=== PATIENT | male | born 1985 | race Two or more races ===

== ENCOUNTER 2019-04-12 14:57 | Inpatient (IN) | payer SELFPAY ==
[~2019-04-12] VITALS: Ht 175.3 cm; Wt 60.2 kg
[2019-04-12] MEDS ORDERED: SODIUM CHLORIDE 0.9% 1,000 ML IVB ONE (15:36)
[2019-04-12] MEDS ORDERED: FAMOTIDINE (10MG/ML) 2ML VL IV ONE (15:45)
[2019-04-12] MEDS ORDERED: MORPHINE SULFATE 4 MG/ML SYR/VIAL IV ONE (15:45)
[2019-04-12 16:07] LABS: Albumin 4.4 g/dL (3.4-5.0); BUN/Creatinine Ratio 20.6; Calcium 8.7 mg/dL (8.5-10.1); Potassium 5.5 mmol/L (3.5-5.1)
[2019-04-12 16:10] LABS: Bilirubin, Total 0.5 mg/dL (0.2-1.0); Total Protein 8.4 g/dL (6.4-8.2)
[2019-04-12 16:12] LABS: Magnesium 2.4 mg/dL (1.6-2.6)
[2019-04-12 17:14] LABS: Lymphocytes % (auto) 8.8 % (10.0-50.0); White Blood Cell 11.8 10^3/uL (4.4-10.8)
[2019-04-12 17:15] LABS: Basophils # (auto) 0 uL; Basophils % (auto) 0.3 % (0.0-2.0); Eosinophils # (auto) 0 uL; Eosinophils % (auto) 0.3 % (0.0-7.0); Hemoglobin 18.7 g/dL (13.5-17.5); Monocytes # (auto) 0.2 uL; Monocytes % (auto) 1.6 % (0.0-12.0); Neutrophils # (auto) 10.5 uL; Nucleated Red Blood Cells % 0.1 %; Red Blood Cells 5.91 10^6/uL (4.5-5.90)
[2019-04-12 17:16] LABS: Hematocrit 55.9 % (41.0-53.0); Mean Corpuscular Hemoglobin 31.6 pg (28.0-32.0); Mean Corpuscular Hgb Conc. 33.4 g/dL (32.0-36.0); Mean Corpuscular Volume 94.6 fL (80.0-100.0); Platelet Count (auto) 307 10^3/uL (140-450); Red Cell Distribution Width 13.5 % (11.8-14.3)
[2019-04-12] MEDS ORDERED: ONDANSETRON HCL 4 MG/2 ML VIAL IV ONE (20:30)
[2019-04-12] MEDS ORDERED: HYDROmorphone HCL 2 MG/ML VL IV ONE (20:30)
[2019-04-12] MEDS ORDERED: TEMAZEPAM 15 MG CAP PO PRN (20:45)
[2019-04-12] MEDS: SODIUM CHLORIDE 0.9% 1,000 ML IV SCH (20:45)
[2019-04-12] MEDS ORDERED: SODIUM CHLORIDE 0.9% 500 ML IV ONE (20:45)
[2019-04-12] MEDS ORDERED: metroNIDAZOLE 500MG/100ML 100 ML IV ONE (20:45)
[2019-04-12] MEDS ORDERED: MORPHINE SULFATE 4 MG/ML SYR/VIAL IV PRN (20:45)
[2019-04-12] MEDS ORDERED: ACETAMINOPHEN 325 MG TAB PO PRN (20:45)
[2019-04-12] MEDS: FAMOTIDINE 20 MG TAB PO SCH (21:38)
--- NOTE | 2019-04-12 22:24 | NUR ---
MS admit from [facility] admitted to tele/MS after SBAR received. Patient oriented to Juhi pettit RN, unit, room, bed, and unit policies regarding patient care and visiting hours. Patient weighed by bed scale and encouraged to call if they need something. All questions and concerns addressed, patient verbalized understanding. Note: Came per wheelchair awake alert oriented x 4, not in respiratory distress, vital signs checked.
[2019-04-12 22:30] VITALS: BP 113/75
--- NOTE | 2019-04-12 22:30 | NUR ---
As per hospitalist notes patient is homeless, but when asked in the floor he lives with his parents, social service consult ordered..
[2019-04-13 02:30] LABS: Urine Bacteria NONE SEEN /hpf (None Seen); Urine Blood Negative /uL (Negative); Urine Specific Gravity 1.018 (1.001-1.035); Urine WBC 1 /hpf (0 - 3)
[2019-04-13 02:58] LABS: Alcohol, Urine < 3.0 mg/dL (0-5); Amphetamine Screen, Urine POSITIVE (NEGATIVE); Barbiturate Scree,Urine NEGATIVE (NEGATIVE); Benzodiazephine Screen, Urine NEGATIVE (NEGATIVE); Cannabinoid Screen, Urine NEGATIVE (NEGATIVE); Cocaine Screen, Urine NEGATIVE (NEGATIVE); Phencyclidine Screen, Urine NEGATIVE (NEGATIVE)
[2019-04-13 03:06] LABS: Opiate Scree,Urine NEGATIVE (NEGATIVE)
[2019-04-13] MEDS: HYDROcodone-ACET 5/325MG TAB PO PRN (05:21)
[2019-04-13] MEDS: metroNIDAZOLE 500MG/100ML 100 ML IV SCH ×3 (05:22→17:15)
[2019-04-13 06:12] LABS: Basophils # (auto) 0 uL; Basophils % (auto) 0.3 % (0.0-2.0); Eosinophils # (auto) 0.2 uL; Eosinophils % (auto) 2.5 % (0.0-7.0); Hematocrit 42.8 % (41.0-53.0); Hemoglobin 14.8 g/dL (13.5-17.5); Lymphocytes # (auto) 0.8 uL; Lymphocytes % (auto) 10.1 % (10.0-50.0); Mean Corpuscular Hgb Conc. 34.7 g/dL (32.0-36.0); Mean Corpuscular Volume 92.1 fL (80.0-100.0); Monocytes # (auto) 0.6 uL; Monocytes % (auto) 7.8 % (0.0-12.0); Neutrophils # (auto) 6.1 uL; Neutrophils % (auto) 79.3 % (37.0-80.0); Nucleated Red Blood Cells % 0.1 %; Platelet Count (auto) 241 10^3/uL (140-450); Red Blood Cells 4.64 10^6/uL (4.5-5.90); Red Cell Distribution Width 12.9 % (11.8-14.3); White Blood Cell 7.7 10^3/uL (4.4-10.8)
[2019-04-13 06:37] LABS: Potassium 3.8 mmol/L (3.5-5.1)
[2019-04-13 06:43] LABS: BUN/Creatinine Ratio 21.8; Calcium 7.7 mg/dL (8.5-10.1)
--- NOTE | 2019-04-13 07:25 | NUR ---
Report given to Isela De León, patient is asleep, no distress.
--- NOTE | 2019-04-13 08:00 | NUR ---
Patient stated he wants to smoke. Explained to patient the Against Medical Advice to smoke off unit/downstairs. No beyond 30 minutes off unit, if he leaves the hospital premises with the IV line intact on his arm, the [facility] [employer] [facility] will be called. Patient verbalized understanding. Patient read the AMA form, signed the form. AMA form placed in the patient's chart.
[2019-04-13] MEDS: SODIUM CHLORIDE 0.9% 1,000 ML IV SCH ×2 (08:24→18:02)
[2019-04-13 09:00] VITALS: BP 104/64
[2019-04-13] MEDS: FAMOTIDINE 20 MG TAB PO SCH ×2 (10:00→21:30)
--- NOTE | 2019-04-13 10:20 | NUR ---
Patient taken via wheelchair to Radiology. Patient refused to wear a hospital gown, wearing pants only, blanket given.
[2019-04-13] MEDS ORDERED: GASTROGRAFIN 120 ML SOL ONE (10:36)
--- NOTE | 2019-04-13 11:50 | NUR ---
Patient back to room.
--- NOTE | 2019-04-13 12:07 | NUR ---
Stool specimen sent to Laboratory.
[2019-04-13 13:00] VITALS: BP 125/82
--- NOTE | 2019-04-13 13:20 | NUR ---
Parents at bedside.
--- NOTE | 2019-04-13 13:50 | NUR ---
Suze Plunkett came over. ordered test the stools for C-difficile, to put in order for Clear Liquid Diet.
--- NOTE | 2019-04-13 13:55 | NUR ---
Patient off unit. With signed AMA to smoke off unit. Mother with patient.
--- NOTE | 2019-04-13 14:00 | NUR ---
C-difficile form brought to Laboratory. Tech said they have the stool specimen.
[2019-04-13 17:00] VITALS: BP 137/84
--- NOTE | 2019-04-13 19:59 | NUR ---
Opening Shift Note Assumed care of patient, awake and alert. No S/S of distress/SOB or pain. Instructed on POC and to call for assist PRN, will continue to monitor for changes Q1hr and PRN.Given juice and jello as per request.
[2019-04-13 22:09] VITALS: BP 118/71
[2019-04-14 05:33] VITALS: BP 128/83
[2019-04-14] MEDS: metroNIDAZOLE 500MG/100ML 100 ML IV SCH ×3 (05:55→21:33)
[2019-04-14] MEDS: SODIUM CHLORIDE 0.9% 1,000 ML IV SCH ×2 (06:06→18:50)
--- NOTE | 2019-04-14 07:32 | NUR ---
Report given to Isela De León, patient is resting no distress.
[2019-04-14 09:00] VITALS: BP 112/75
--- NOTE | 2019-04-14 09:48 | NUR ---
Patient went back to bed from the bathroom.
[2019-04-14] MEDS: FAMOTIDINE 20 MG TAB PO SCH ×2 (09:50→21:33)
--- NOTE | 2019-04-14 10:30 | NUR ---
Suze Plunkett came over fro follow up GI Consult. to advance the diet to Full Liquid.
[2019-04-14] MEDS: ONDANSETRON HCL 4 MG/2 ML VIAL IV PRN (10:36)
--- NOTE | 2019-04-14 10:36 | NUR ---
Patient stated he got nauseous while smoking downstairs so he went back to his room right away. Zofran Inj given for nausea as ordered.
[2019-04-14 13:00] VITALS: BP 116/73
[2019-04-14 17:00] VITALS: BP 126/74
[2019-04-14] MEDS: HYDROcodone-ACET 5/325MG TAB PO PRN (18:48)
--- NOTE | 2019-04-14 18:48 | NUR ---
Patient stated his abdominal pain at 6/10 at this time. [place] 5/325 PO given for pain as ordered.
[2019-04-14 20:00] VITALS: BP 130/82
--- NOTE | 2019-04-14 20:05 | NUR ---
Opening Shift Note Assumed care of patient, awake and alert, talking to gf on the phone. No S/S of distress/SOB on room air, c/o abdominal pain, recently medicated. Instructed on POC and to call for assistance PRN, will continue to monitor for changes Q1hr and PRN. Call light within reach
[2019-04-14 21:28] VITALS: BP 130/82
--- NOTE | 2019-04-14 22:05 | NUR ---
Info Spoke to girlfriend, password verified, update provided, informed on poc and pending tests. Girlfriend asked if HIV or std tests were part of routine screening, informed we do not run those tests unless requested by patient or ordered by MD. All questions answered. GF to call tomorrow at 5pm for update.
--- NOTE | 2019-04-15 00:45 | NUR ---
Rounds Patient sleeping respirations even and unlabored. No S/S of distress/SOB or pain. Will continue to monitor changes q1hr and PRN.
[2019-04-15 04:45] VITALS: BP 112/75
[2019-04-15] MEDS: metroNIDAZOLE 500MG/100ML 100 ML IV SCH ×2 (06:12→14:00)
[2019-04-15] MEDS: SODIUM CHLORIDE 0.9% 1,000 ML IV SCH ×2 (06:13→10:03)
--- NOTE | 2019-04-15 08:10 | NUR ---
Patient back to room from smoking off unit. Patient stated he's nauseous.
[2019-04-15] MEDS: ONDANSETRON HCL 4 MG/2 ML VIAL IV PRN (08:18)
--- NOTE | 2019-04-15 08:18 | NUR ---
Zofran Inj given for nausea.
[2019-04-15 09:00] VITALS: BP 121/79
[2019-04-15] MEDS: FAMOTIDINE 20 MG TAB PO SCH (09:56)
--- NOTE | 2019-04-15 10:08 | NUR ---
Suze Plunkett came over. said patient okay to go home as per GI perspective.
[2019-04-15 13:00] VITALS: BP 109/72
--- NOTE | 2019-04-15 16:10 | NUR ---
Sixto Tovar brought a white long sleeve shirt for the patient. Patient has no shirt from home.
[2019-04-15 16:32] VITALS: BP 109/72
--- NOTE | 2019-04-15 16:50 | NUR ---
Discharge instructions given as ordered. Encourage to follow up with PMD as instructed. Patient has no insurance, information on [facility] given. All questions and concerns addressed. Patient verbalized understanding. Medication reconciliation form completed and copy given to patient. IV removed with catheter intact, pressure dressing applied. Patient is ambulatory, refused to be taken to vehicle via wheelchair, patient with all personal belongings, accompanied by male family member. No distress noted at time of departure.
[2019-04-15 17:00] VITALS: BP 143/79
== END 2019-04-15 16:50 | disposition home or self-care (01) | DRG 388 ==
LOC: EDBD 14:57 → ER 14:57 → OVERFLOW 14:58 → WEST WING 22:24
PROVIDERS: ADMIT Nurse Practitioner; ATTEND Internal Medicine Pulmonary Disease
DX: K56.7 Ileus, unspecified (principal); K85.90 Acute pancreatitis without necrosis or infection, unspecified; R65.10 Systemic inflammatory response syndrome (SIRS) of non-infectious origin without acute organ dysfunction; Z59.0 Homelessness; K52.9 Noninfective gastroenteritis and colitis, unspecified; F15.90 Other stimulant use, unspecified, uncomplicated; E87.5 Hyperkalemia; D72.829 Elevated white blood cell count, unspecified
CPT/HCPCS: 36415; 74176; 74250; 80048; 80053; 80307; 81001; 83690; 83735; 84132; 85025; 85048; 87045; 87427; 87493; G0378; J2405; J3490

== ENCOUNTER 2019-04-29 14:44 | Emergency (ER) | payer SELFPAY ==
[~2019-04-29] VITALS: Ht 175.3 cm; Wt 72.6 kg
[2019-04-29 14:50] VITALS: BP 128/74
== END 2019-04-29 17:30 | disposition left against medical advice (07) ==
LOC: EDBD 14:44 → ER 14:44
DX: R11.2 Nausea with vomiting, unspecified (principal); Z53.21 Procedure and treatment not carried out due to patient leaving prior to being seen by health care provider

== ENCOUNTER 2019-10-23 15:14 | Inpatient (IN) | payer MEDICAID, OTHER ==
[~2019-10-23] VITALS: Ht 177.8 cm; Wt 63.5 kg
[2019-10-23] MEDS ORDERED: SODIUM CHLORIDE 0.9% 1,000 ML IV ONE ×2 (15:24)
[2019-10-23] MEDS ORDERED: MORPHINE SULFATE 4 MG/ML SYR/VIAL IV ONE (15:30)
[2019-10-23] MEDS ORDERED: ONDANSETRON HCL 4 MG/2 ML VIAL IV ONE (15:30)
[2019-10-23 15:32] LABS: Red Cell Distribution Width 13.4 % (11.8-14.3)
[2019-10-23 15:34] LABS: Hematocrit 55.1 % (41.0-53.0); Mean Corpuscular Hemoglobin 31.6 pg (28.0-32.0); Mean Corpuscular Hgb Conc. 34.5 g/dL (32.0-36.0); Mean Corpuscular Volume 91.8 fL (80.0-100.0); Platelet Count (auto) 306 10^3/uL (140-450)
[2019-10-23 15:45] LABS: Basophils % (manual) 0 (0.0-2.0); Blast Cells 0; Metamyelocytes % 0; Myelocytes % 0; Promyelocytes % 0; Reactive Lymphocytes 0
[2019-10-23 15:51] LABS: Albumin 5.2 g/dL (3.4-5.0); Anion Gap 6 (5-15); Blood Urea Nitrogen 25 mg/dL (7-18); Calcium 9.8 mg/dL (8.5-10.1); Carbon Dioxide 28 mmol/L (21-32); Chloride 99 mmol/L (98-107); Glucose 144 mg/dL (74-106); Potassium 4.1 mmol/L (3.5-5.1); Sodium 133 mmol/L (136-145)
[2019-10-23 15:57] LABS: Alanine Aminotransferase 23 U/L (16-61); Alkaline Phosphatase 76 U/L (45-117); Aspartate Aminotransferase 14 U/L (15-37); BUN/Creatinine Ratio 19.2; Bilirubin, Total 0.6 mg/dL (0.2-1.0); GFR African American 81 mL/min; GFR Non-African American 67 mL/min; Total Protein 9.4 g/dL (6.4-8.2)
[2019-10-23] MEDS ORDERED: metroNIDAZOLE 500MG/100ML 100 ML IV ONE (16:00)
[2019-10-23] MEDS ORDERED: cefTRIAXone 1GM/50ML D5W 50 ML IV ONE (16:00)
[2019-10-23] MEDS ORDERED: DIPHENOXYLATE W/ATROPINE 2.5 MG TAB PO ONE (16:15)
[2019-10-23 16:40] LABS: Band Neutrophils % (manual) 20; Eosinophils % (manual) 1 (0-7); Lymphocytes % (manual) 6 (10.0-50.0); Monocytes % (manual) 3 (0-12)
[2019-10-23 17:07] LABS: INR 1.03 (0.9-1.15); Partial Thromboplastin Time 26.2 sec (23.64-32.05)
[2019-10-23 17:21] LABS: Urine WBC None Seen /hpf (0 - 3)
[2019-10-23 17:43] LABS: Urine Bacteria NONE SEEN /hpf (None Seen); Urine Blood Negative /uL (Negative); Urine Hyaline Cast MANY /lpf (0 - 2); Urine Mucus FEW (None Seen); Urine Specific Gravity 1.011 (1.001-1.035)
[2019-10-23 17:49] LABS: Alcohol, Urine < 3.0 mg/dL (0-5); Amphetamine Screen, Urine NEGATIVE (NEGATIVE); Barbiturate Scree,Urine NEGATIVE (NEGATIVE); Benzodiazephine Screen, Urine NEGATIVE (NEGATIVE); Cannabinoid Screen, Urine NEGATIVE (NEGATIVE); Cocaine Screen, Urine NEGATIVE (NEGATIVE); Opiate Scree,Urine POSITIVE (NEGATIVE); Phencyclidine Screen, Urine NEGATIVE (NEGATIVE)
[2019-10-23] MEDS ORDERED: MORPHINE SULF INJ 2 MG/ML SYRINGE 1ML IV PRN (18:30)
[2019-10-23] MEDS ORDERED: ACETAMINOPHEN 500 MG TAB PO PRN (18:30)
[2019-10-23] MEDS: SODIUM CHLORIDE 0.9% 1,000 ML IV SCH (19:09)
[2019-10-23] MEDS ORDERED: PNEUMOCOCCAL VACC POLYS 25 MCG/0.5 ML VIAL IM ONE (21:00)
[2019-10-23 22:00] VITALS: BP 108/67
[2019-10-23] MEDS: metroNIDAZOLE 500MG/100ML 100 ML IV SCH (22:35)
--- NOTE | 2019-10-23 23:37 | NUR ---
PATIENT IS A NEW ADMIT FROM ER AT 2030. PRESENTING COMPLAINTS IN ER WERE NAUSEA, VOMITING AND ABDOMINAL PAIN. PATIENT DENIED ALL THREE SYMPTOMS ON ADMISSION. NEW PERIPHERAL IV LINE INSERTED AT 2100 ON THE RIGHT FOREARM. FORMER ONE ON RIGHT ANTECUBITAL WAS DISCONTINUED FOR BLOCKAGE. PATIENT HAS REMAINED CALM AND PAIN FREE.
[2019-10-24] MEDS: SODIUM CHLORIDE 0.9% 1,000 ML IV SCH ×3 (02:38→16:52)
[2019-10-24 05:00] VITALS: BP 106/53
[2019-10-24] MEDS: metroNIDAZOLE 500MG/100ML 100 ML IV SCH ×3 (05:47→22:23)
[2019-10-24 06:12] LABS: Basophils # (auto) 0 10 ^3/uL (0-0.2); Basophils % (auto) 0.5 % (0.0-2.0); Eosinophils # (auto) 0.1 10 ^3/uL (0-0.8); Eosinophils % (auto) 2.6 % (0.0-7.0); Hematocrit 40.8 % (41.0-53.0); Lymphocytes # (auto) 1.8 10 ^3/uL (0.4-5.4); Lymphocytes % (auto) 34.2 % (10.0-50.0); Mean Corpuscular Hemoglobin 31.4 pg (28.0-32.0); Mean Corpuscular Hgb Conc. 34.4 g/dL (32.0-36.0); Mean Corpuscular Volume 91.1 fL (80.0-100.0); Monocytes # (auto) 0.4 10 ^3/uL (0-1.3); Monocytes % (auto) 6.8 % (0.0-12.0); Neutrophils % (auto) 55.9 % (37.0-80.0); Nucleated Red Blood Cells % 0.1 %; Platelet Count (auto) 238 10^3/uL (140-450); Red Blood Cells 4.47 10^6/uL (4.5-5.90); Red Cell Distribution Width 13.5 % (11.8-14.3); White Blood Cell 5.4 10^3/uL (4.4-10.8)
[2019-10-24 06:31] LABS: Potassium 3.9 mmol/L (3.5-5.1)
[2019-10-24 06:39] LABS: Albumin 3.2 g/dL (3.4-5.0); BUN/Creatinine Ratio 15.9; Bilirubin, Total 0.9 mg/dL (0.2-1.0); Calcium 7.6 mg/dL (8.5-10.1)
--- NOTE | 2019-10-24 07:30 | NUR ---
Opening Shift Note RECEIVED REPORT FROM NOC RN. Assumed care of patient, awake and alert. No S/S of distress/SOB or pain. BED IN LOWEST, LOCKED POSITION WITH SIDERAILS UP x2 AND CALL LIGHT WITHIN REACH. Instructed on POC and to call for assist PRN, will continue to monitor for changes Q1hr and PRN.
[2019-10-24 08:43] VITALS: BP 102/62
[2019-10-24] MEDS: cefTRIAXone 1GM/50ML D5W 50 ML IV SCH (09:18)
[2019-10-24] MEDS: PANTOPRAZOLE 40 MG/10 ML VIAL INJ IV SCH (09:47)
--- NOTE | 2019-10-24 10:25 | NUR ---
Pt was initial listed as having no current insurance. Pt states he is unemployed. Discussed with pt eligibility options for medical coverage base on their current situation. Pt was going to be referred to Dejon Kendall, [facility] Consulant. for assist with process for [facility] insurance coverage. However in the process of obtaining information it was discovered that the pt had [employer]. Will Follow up with Mr. Kendall. Addendum: 10/24/19 at 1033 by JOLIE MOY SS Amended: Links added.
[2019-10-24] MEDS ORDERED: LIDOCAINE VISCOUS 2% 15ML UD ONE (12:48)
[2019-10-24] MEDS ORDERED: SODIUM CHLORIDE LOCK 10 ML ONE (12:48)
[2019-10-24] MEDS ORDERED: NALOXONE HCL 0.4 MG/ML VIAL ONE (12:48)
[2019-10-24] MEDS ORDERED: FLUMAZENIL 0.1 MG/ML INJ 10ML MDV IV ONE (12:48)
[2019-10-24] MEDS ORDERED: fentaNYL CITRATE 100 MCG/2 ML VL ONE (12:49)
[2019-10-24] MEDS ORDERED: MIDAZOLAM HCL 5 MG/ML-1ML VIAL ONE (12:49)
[2019-10-24] MEDS ORDERED: diphenhdrAMINE HCL 50 MG/1 ML VL ONE (12:49)
[2019-10-24 12:59] VITALS: BP 105/66
[2019-10-24] MEDS ORDERED: traMADol HCL 50 MG TAB PO PRN (13:15)
--- NOTE | 2019-10-24 13:15 | NUR ---
REPORT GIVEN TO NAIN MONTES DE OCA.
--- NOTE | 2019-10-24 14:01 | NUR ---
Received pt back from post op s/p EGD. V/S 98/66, 59, 18, 97%, and pt denies pain at this time.
--- NOTE | 2019-10-24 16:17 | NUR ---
Called and spoke to Dr. Chacon regarding pt requesting nicotine patch, orders received for nicotine patch.
[2019-10-24] MEDS ORDERED: NICOTINE 21MG/24 HR TOPICAL PATCH TD ONE (16:30)
[2019-10-24 16:33] VITALS: BP 117/69
[2019-10-24] MEDS: SUCRALFATE 1 GM/10 ML ORAL SUSP PO SCH ×2 (16:52→22:23)
--- NOTE | 2019-10-24 19:50 | NUR ---
Opening Shift Note Assumed care of patient, awake, AAOx4. No S/S of distress/SOB or pain. C/O nausea. Bed in lowest locked position, side rails up x2, call light within reach. Instructed on POC and to call for assist PRN, will continue to monitor for changes Q1hr and PRN.
[2019-10-24] MEDS: ONDANSETRON HCL 4 MG/2 ML VIAL IV PRN (19:59)
[2019-10-24 20:00] VITALS: BP 122/79
[2019-10-24 22:00] VITALS: BP 122/79
[2019-10-25] MEDS: ONDANSETRON HCL 4 MG/2 ML VIAL IV PRN (04:00)
[2019-10-25] MEDS: SODIUM CHLORIDE 0.9% 1,000 ML IV SCH ×2 (04:38→14:20)
[2019-10-25 05:00] VITALS: BP_SYST 112; BP_SYST 152; BP_DIAS 110; BP_DIAS 73
[2019-10-25 05:28] LABS: Basophils # (auto) 0 10 ^3/uL (0-0.2); Basophils % (auto) 0.5 % (0.0-2.0); Eosinophils # (auto) 0.2 10 ^3/uL (0-0.8); Eosinophils % (auto) 3.1 % (0.0-7.0); Lymphocytes # (auto) 1.8 10 ^3/uL (0.4-5.4); Lymphocytes % (auto) 31.7 % (10.0-50.0); Mean Corpuscular Hemoglobin 31.4 pg (28.0-32.0); Mean Corpuscular Hgb Conc. 34.2 g/dL (32.0-36.0); Mean Corpuscular Volume 91.9 fL (80.0-100.0); Monocytes # (auto) 0.4 10 ^3/uL (0-1.3); Monocytes % (auto) 6.5 % (0.0-12.0); Neutrophils # (auto) 3.3 10 ^3/uL (1.6-8.6); Neutrophils % (auto) 58.2 % (37.0-80.0); Nucleated Red Blood Cells % 0.1 %; Platelet Count (auto) 227 10^3/uL (140-450); Red Blood Cells 4.46 10^6/uL (4.5-5.90); Red Cell Distribution Width 13.6 % (11.8-14.3); White Blood Cell 5.6 10^3/uL (4.4-10.8)
[2019-10-25 05:47] LABS: Potassium 3.9 mmol/L (3.5-5.1)
[2019-10-25 05:51] LABS: BUN/Creatinine Ratio 9.9; Calcium 8.1 mg/dL (8.5-10.1)
[2019-10-25] MEDS: metroNIDAZOLE 500MG/100ML 100 ML IV SCH ×2 (06:31→14:20)
[2019-10-25] MEDS: SUCRALFATE 1 GM/10 ML ORAL SUSP PO SCH ×2 (06:31→12:05)
[2019-10-25 08:00] VITALS: BP 125/84
[2019-10-25 09:00] VITALS: BP 125/84
[2019-10-25] MEDS: PANTOPRAZOLE 40 MG/10 ML VIAL INJ IV SCH (09:18)
[2019-10-25] MEDS: cefTRIAXone 1GM/50ML D5W 50 ML IV SCH (09:20)
[2019-10-25] MEDS ORDERED: NICOTINE 21MG/24 HR TOPICAL PATCH TD SCH (10:00)
[2019-10-25 12:26] VITALS: BP 123/81
[2019-10-25 15:48] VITALS: BP 123/84
[2019-10-25 16:22] VITALS: BP 130/89
== END 2019-10-25 17:15 | disposition home or self-care (01) | DRG 241 ==
LOC: ER 15:14 → EDBD 15:14 → OVERFLOW 15:15 → WEST WING 19:51
PROVIDERS: ADMIT Nurse Practitioner Acute Care; ATTEND Internal Medicine
PROC: 0DB88ZX Excision of Small Intestine, Via Natural or Artificial Opening Endoscopic, Diagnostic (ICD-10-PCS; 2019-10-24)
PROC: 0DB68ZX Excision of Stomach, Via Natural or Artificial Opening Endoscopic, Diagnostic (ICD-10-PCS; principal; 2019-10-24 13:04)
DX: K29.70 Gastritis, unspecified, without bleeding (principal); R64 Cachexia; R65.10 Systemic inflammatory response syndrome (SIRS) of non-infectious origin without acute organ dysfunction; E86.0 Dehydration; K25.9 Gastric ulcer, unspecified as acute or chronic, without hemorrhage or perforation; F17.210 Nicotine dependence, cigarettes, uncomplicated; K31.3 Pylorospasm, not elsewhere classified; K44.9 Diaphragmatic hernia without obstruction or gangrene; Z68.1 Body mass index [BMI] 19.9 or less, adult
CPT/HCPCS: 36415; 43239; 71045; 74176; 80048; 80053; 80307; 81001; 83690; 84484; 85007; 85025; 85027; 85610; 85730; 93005; C9113; G0378; J0696; J2250; J2405; J3490

== ENCOUNTER 2022-01-19 03:00 | Emergency (ER) | payer OTHER ==
[~2022-01-19] VITALS: Ht 172.7 cm; Wt 59.0 kg
[2022-01-19] MEDS ORDERED: ONDANSETRON HCL 4 MG/2 ML VIAL IV ONE (03:30)
[2022-01-19 04:26] LABS: Albumin 3.9 g/dL (3.4-5.0); Calcium 8.4 mg/dL (8.5-10.1); Potassium 4.3 mmol/L (3.5-5.1)
[2022-01-19 04:29] LABS: BUN/Creatinine Ratio 9.1; Bilirubin, Total 0.8 mg/dL (0.2-1.0); Total Protein 7.7 g/dL (6.4-8.2)
[2022-01-19 04:58] LABS: Basophils # (auto) 0 10 ^3/uL (0-0.2); Basophils % (auto) 0.3 % (0.0-2.0); Eosinophils # (auto) 0.1 10 ^3/uL (0-0.8); Eosinophils % (auto) 1.3 % (0.0-7.0); Hematocrit 44.5 % (41.0-53.0); Lymphocytes # (auto) 0.8 10 ^3/uL (0.4-5.4); Lymphocytes % (auto) 9.5 % (10.0-50.0); Mean Corpuscular Hemoglobin 30.5 pg (28.0-32.0); Mean Corpuscular Hgb Conc. 33.7 g/dL (32.0-36.0); Mean Corpuscular Volume 90.4 fL (80.0-100.0); Monocytes # (auto) 0.4 10 ^3/uL (0-1.3); Monocytes % (auto) 5.1 % (0.0-12.0); Neutrophils # (auto) 7.1 10 ^3/uL (1.6-8.6); Neutrophils % (auto) 83.8 % (37.0-80.0); Red Blood Cells 4.92 10^6/uL (4.5-5.90); Red Cell Distribution Width 13.2 % (11.8-14.3); White Blood Cell 8.5 10^3/uL (4.4-10.8)
[2022-01-19 08:11] VITALS: BP 110/82
== END 2022-01-19 09:04 | disposition home or self-care (01) ==
LOC: ER 03:00
DX: A08.4 Viral intestinal infection, unspecified (principal); F15.10 Other stimulant abuse, uncomplicated; F12.10 Cannabis abuse, uncomplicated; Z59.00 Homelessness unspecified
CPT/HCPCS: 36415; 80053; 85025; 96374; 99283; J2405

== ENCOUNTER 2022-03-06 18:21 | Emergency (ER) | payer OTHER ==
[~2022-03-06] VITALS: Ht 172.7 cm; Wt 54.0 kg
[2022-03-06 18:36] VITALS: BP 120/82
[2022-03-06 19:25] LABS: Basophils # (auto) 0.1 10 ^3/uL (0-0.2); Basophils % (auto) 0.3 % (0.0-2.0); Eosinophils # (auto) 0.2 10 ^3/uL (0-0.8); Eosinophils % (auto) 1.2 % (0.0-7.0); Hemoglobin 17.1 g/dL (13.5-17.5); Lymphocytes # (auto) 1.2 10 ^3/uL (0.4-5.4); Lymphocytes % (auto) 6.9 % (10.0-50.0); Mean Corpuscular Hemoglobin 29.8 pg (28.0-32.0); Mean Corpuscular Hgb Conc. 32.9 g/dL (32.0-36.0); Mean Corpuscular Volume 90.6 fL (80.0-100.0); Monocytes # (auto) 0.7 10 ^3/uL (0-1.3); Neutrophils # (auto) 14.9 10 ^3/uL (1.6-8.6); Neutrophils % (auto) 87.6 % (37.0-80.0); Red Blood Cells 5.74 10^6/uL (4.5-5.90); Red Cell Distribution Width 13.7 % (11.8-14.3)
[2022-03-06 19:41] LABS: Albumin 4.7 g/dL (3.4-5.0); Calcium 9.6 mg/dL (8.5-10.1)
[2022-03-06 19:44] LABS: BUN/Creatinine Ratio 10.2; Bilirubin, Total 0.7 mg/dL (0.2-1.0); Total Protein 8.8 g/dL (6.4-8.2)
== END 2022-03-06 22:39 | disposition left against medical advice (07) ==
LOC: ER 18:21
DX: R07.89 Other chest pain (principal); R11.0 Nausea; Z53.21 Procedure and treatment not carried out due to patient leaving prior to being seen by health care provider
CPT/HCPCS: 36415; 71045; 80053; 84484; 85025; 93005

== ENCOUNTER 2022-08-12 12:51 | Emergency (ER) | payer OTHER ==
[~2022-08-12] VITALS: Ht 152.4 cm; Wt 60.0 kg
[2022-08-12 13:15] VITALS: BP 117/83
[2022-08-12] MEDS ORDERED: SODIUM CHLORIDE 0.9% 1,000 ML IV ONE (14:00)
[2022-08-12 14:04] LABS: Basophils # (auto) 0 10 ^3/uL (0-0.2); Basophils % (auto) 0.2 % (0.0-2.0); Eosinophils # (auto) 0.1 10 ^3/uL (0-0.8); Eosinophils % (auto) 0.8 % (0.0-7.0); Hemoglobin 17.3 g/dL (13.5-17.5); Lymphocytes # (auto) 0.6 10 ^3/uL (0.4-5.4); Lymphocytes % (auto) 7.4 % (10.0-50.0); Mean Corpuscular Hemoglobin 30.1 pg (28.0-32.0); Mean Corpuscular Hgb Conc. 33.3 g/dL (32.0-36.0); Mean Corpuscular Volume 90.4 fL (80.0-100.0); Monocytes # (auto) 0.8 10 ^3/uL (0-1.3); Neutrophils # (auto) 7.1 10 ^3/uL (1.6-8.6); Neutrophils % (auto) 82.6 % (37.0-80.0); Nucleated Red Blood Cells % 0.1 %; Red Blood Cells 5.75 10^6/uL (4.5-5.90); Red Cell Distribution Width 13.4 % (11.8-14.3); White Blood Cell 8.6 10^3/uL (4.4-10.8)
[2022-08-12 14:16] LABS: Albumin 4.2 g/dL (3.4-5.0); BUN/Creatinine Ratio 22.8; Calcium 9.2 mg/dL (8.5-10.1); Potassium 3.8 mmol/L (3.5-5.1)
[2022-08-12 14:18] LABS: Bilirubin, Total 1.2 mg/dL (0.2-1.0); Total Protein 8.1 g/dL (6.4-8.2)
[2022-08-12 14:21] LABS: Lactic Acid w/Reflex 2.4 mmol/L (0.4-2.0)
[2022-08-12] MEDS ORDERED: ONDANSETRON ODT 4 MG TAB PO ONE (15:45)
[2022-08-12 17:45] LABS: Urine Bacteria NONE SEEN /hpf (None Seen); Urine Blood TRACE /uL (Negative); Urine Hyaline Cast FEW /lpf (0 - 2); Urine Mucus FEW (None Seen); Urine Specific Gravity 1.035 (1.001-1.035); Urine WBC 2 /hpf (0 - 3)
[2022-08-12 17:53] LABS: Alcohol, Urine < 3.0 mg/dL (0-10); Amphetamine Screen, Urine POSITIVE (NEGATIVE); Barbiturate Scree,Urine NEGATIVE (NEGATIVE); Benzodiazephine Screen, Urine NEGATIVE (NEGATIVE); Cannabinoid Screen, Urine NEGATIVE (NEGATIVE); Cocaine Screen, Urine NEGATIVE (NEGATIVE)
[2022-08-12 18:00] LABS: Opiate Scree,Urine NEGATIVE (NEGATIVE); Phencyclidine Screen, Urine NEGATIVE (NEGATIVE)
[2022-08-12] MEDS ORDERED: ONDA-144 PO (18:20)
[2022-08-12] MEDS ORDERED: PANTOPRAZOLE 40 MG/10 ML VIAL INJ IV ONE (18:30)
== END 2022-08-12 20:18 | disposition home or self-care (01) ==
LOC: ER 12:51
DX: K59.00 Constipation, unspecified (principal); F15.10 Other stimulant abuse, uncomplicated; F12.10 Cannabis abuse, uncomplicated; Z59.00 Homelessness unspecified; Z79.899 Other long term (current) drug therapy
CPT/HCPCS: 36415; 71045; 74176; 80053; 80307; 81001; 83605; 83690; 85025